=== PATIENT | female | born 1945 | race American Indian/Alaskan Native ===

== ENCOUNTER 2016-09-06 21:18 | Inpatient (IN) | payer MEDICARE ==
--- NOTE | 2016-09-06 22:46 | Emergency Department Report ---
ED General Adult HPI - General Chief complaint: Altered Mental Status Stated complaint: MH EVAL Time Seen by Provider: 09/06/16 22:28 Source: family, EMS (ems notes not available at time of chart dictation), RN notes reviewed Mode of arrival: Stretcher Limitations: Altered Mental Status, Physical Limitation - History of Present Illness Initial comments: This is a 71-year-old female. She is previously unknown to me. Her primary care doctor is Dr. Simon. Cardiology with [facility]. Past medical history includes hypertension, high cholesterol, diabetes, kidney disease (family thinks the patient has stage III CK did, but they're not certain ), stroke, possible early dementia. Patient is brought to the hospital by EMS and family for altered mental status. Patient last seen normal at 4:30 previous afternoon. Symptoms are constant. They have no exacerbating or relieving factors. No fevers or chills. As per family, patient speaking nonsensically, having word finding difficulty. The patient is altered, somewhat delirious, is unable to offer additional collaborating history. -: unknown Severity scale (0 -10): 0 Consistency: constant Improves with: none Worsens with: none Associated Symptoms: confusion - Related Data Home Medications Medication Instructions Recorded Confirmed Last Taken Clopidogrel [Plavix] 75 mg PO QDAY 09/07/16 09/07/16 09/06/16 Hydralazine HCl [Apresoline TAB] 75 mg PO TID 09/07/16 09/07/16 09/06/16 Losartan [Cozaar] 100 mg PO QDAY 09/07/16 09/07/16 09/06/16 Metoprolol [Lopressor TAB] 100 mg PO DAILY 09/07/16 09/07/16 09/06/16 NIFEdipine [Nifedipine ER] 90 mg PO DAILY 09/07/16 09/07/16 09/06/16 Potassium Bicarbonate/Cit AC 20 meq PO DAILY 09/07/16 09/07/16 09/06/16 [Potassium 25 Meq Tablet Eff] Simvastatin [Zocor TAB] 40 mg PO QHS 09/07/16 09/07/16 09/05/16 cloNIDine [Catapres] 0.1 mg PO DAILY 09/07/16 09/07/16 09/06/16 levETIRAcetam [Keppra TAB] 750 mg PO BID 09/07/16 09/07/16 09/06/16 Allergies Allergy/AdvReac Type Severity Reaction Status Date / Time ascorbic acid Allergy Anaphylaxis Verified 09/06/16 22:09 [From Vital-D Rx] aspirin Allergy Anaphylaxis Verified 09/06/16 22:09 cholecalciferol (vitamin D3) Allergy Anaphylaxis Verified 09/06/16 22:09 [From Vital-D Rx] folic acid [From Vital-D Rx] Allergy Anaphylaxis Verified 09/06/16 22:09 vitamin B complex no.4 Allergy Anaphylaxis Verified 09/06/16 22:09 [From Vital-D Rx] zinc oxide [From Vital-D Rx] Allergy Anaphylaxis Verified 09/06/16 22:09 ED Review of Systems ROS: Stated complaint: MH EVAL Other details as noted in HPI Constitutional: malaise. denies: fever Eyes: denies: eye discharge ENT: denies: congestion Respiratory: denies: cough Cardiovascular: denies: chest pain Gastrointestinal: denies: vomiting Genitourinary: as per HPI Musculoskeletal: as per HPI Skin: as per HPI Neurological: as per HPI, weakness, other (ams) Psychiatric: as per HPI ED Past Medical Hx - Past Medical History Previous Medical History?: Yes Hx Hypertension: Yes Hx CVA: Yes Hx Diabetes: Yes - Surgical History Past Surgical History?: No - Social History Smoking Status: Never Smoker Substance Use Type: None - Medications Home Medications: Home Medications Medication Instructions Recorded Confirmed Last Taken Type Clopidogrel [Plavix] 75 mg PO QDAY 09/07/16 09/07/16 09/06/16 History Hydralazine HCl [Apresoline TAB] 75 mg PO TID 09/07/16 09/07/16 09/06/16 History Losartan [Cozaar] 100 mg PO QDAY 09/07/16 09/07/16 09/06/16 History Metoprolol [Lopressor TAB] 100 mg PO DAILY 09/07/16 09/07/16 09/06/16 History NIFEdipine [Nifedipine ER] 90 mg PO DAILY 09/07/16 09/07/16 09/06/16 History Potassium Bicarbonate/Cit AC 20 meq PO DAILY 09/07/16 09/07/16 09/06/16 History [Potassium 25 Meq Tablet Eff] Simvastatin [Zocor TAB] 40 mg PO QHS 09/07/16 09/07/16 09/05/16 History cloNIDine [Catapres] 0.1 mg PO DAILY 09/07/16 09/07/16 09/06/16 History levETIRAcetam [Keppra TAB] 750 mg PO BID 09/07/16 09/07/16 09/06/16 History ED Physical Exam - General Limitations: Altered Mental Status, Physical Limitation General appearance: in no apparent distress - Head Head exam: Present: atraumatic, normocephalic - Eye Eye exam: Present: normal appearance, EOMI. Absent: nystagmus - ENT ENT exam: Present: mucous membranes dry - Neck Neck exam: Present: normal inspection, full ROM. Absent: tenderness, meningismus - Respiratory Respiratory exam: Present: normal lung sounds bilaterally. Absent: respiratory distress, wheezes, rales, rhonchi, stridor, chest wall tenderness, accessory muscle use, decreased breath sounds, prolonged expiratory - Cardiovascular Cardiovascular Exam: Present: regular rate, normal rhythm, normal heart sounds. Absent: bradycardia, tachycardia, irregular rhythm, systolic murmur, diastolic murmur, rubs, gallop - GI/Abdominal GI/Abdominal exam: Present: soft, tenderness, normal bowel sounds, other (there is mild lower abdominal tenderness, there is no rebound, guarding or peritoneal signs.). Absent: distended, guarding, rebound, rigid, pulsatile mass - Extremities Exam Extremities exam: Present: normal inspection, full ROM, normal capillary refill. Absent: pedal edema, joint swelling, calf tenderness - Back Exam Back exam: Present: normal inspection, full ROM. Absent: tenderness, CVA tenderness (R), CVA tenderness (L), muscle spasm, paraspinal tenderness, vertebral tenderness - Neurological Exam Neurological exam: Present: alert, altered (patient altered. Speaks nonsensically. Follows some commands. No obvious dysarthria.), other ( Extraocular movements intact. Tongue midline. No facial droop. Facial sensation intact to light touch in the V1, V2, V3 distribution bilaterally. 5 and 5 strength in 4 extremities.. Sensation is intact to light touch in 4 extremities.). Absent: motor sensory deficit - Psychiatric Psychiatric exam: Present: anxious - Skin Skin exam: Present: warm, dry, intact, normal color. Absent: rash ED Course Vital Signs 09/06/16 09/06/16 09/06/16 21:59 22:00 22:11 Temperature 98.1 F Pulse Rate 67 69 70 Respiratory 16 16 16 Rate Blood Pressure Blood Pressure 160/63 [Left] O2 Sat by Pulse 99 99 99 Oximetry 09/06/16 09/07/16 09/07/16 23:00 00:08 01:00 Temperature Pulse Rate 70 Respiratory 12 14 Rate Blood Pressure 162/60 163/69 152/62 Blood Pressure [Left] O2 Sat by Pulse 100 99 100 Oximetry 09/07/16 09/07/16 09/07/16 01:18 01:40 02:00 Temperature 98.2 F Pulse Rate Respiratory 20 19 Rate Blood Pressure 179/60 Blood Pressure [Left] O2 Sat by Pulse 100 99 Oximetry 09/07/16 09/07/16 09/07/16 03:00 04:00 05:00 Temperature Pulse Rate 74 75 72 Respiratory 19 15 18 Rate Blood Pressure 174/74 163/75 164/70 Blood Pressure [Left] O2 Sat by Pulse 99 99 99 Oximetry 09/07/16 09/07/16 09/07/16 06:00 07:00 07:48 Temperature Pulse Rate 78 74 Respiratory 18 19 20 Rate Blood Pressure 155/69 164/63 Blood Pressure 168/64 [Left] O2 Sat by Pulse 98 100 98 Oximetry 09/07/16 09/07/16 09/07/16 08:00 08:15 09:00 Temperature Pulse Rate 76 76 Respiratory 21 20 17 Rate Blood Pressure 140/58 162/72 Blood Pressure [Left] O2 Sat by Pulse 99 98 99 Oximetry 09/07/16 09/07/16 09/07/16 09:57 10:00 13:38 Temperature Pulse Rate 78 Respiratory 19 Rate Blood Pressure 166/65 152/65 166/65 Blood Pressure [Left] O2 Sat by Pulse 100 100 Oximetry 09/07/16 09/07/16 14:00 16:40 Temperature Pulse Rate 74 89 Respiratory 17 17 Rate Blood Pressure 160/71 Blood Pressure 153/76 [Left] O2 Sat by Pulse 99 97 Oximetry - Reevaluation(s) Reevaluation #1: 09/07/16 00:22 Differential diagnosis: Uremic encephalopathy, toxic encephalopathy, metabolic encephalopathy, pneumonia, urinary tract infection, intra-abdominal infection, subacute stroke Assessment and plan: 71-year-old female with altered mental status, reported history of board finding difficulty, presented to the ER more than 4.5 hours after last being seen normal, therefore she is not a TPA candidate. She follow some commands, moves 4 extremities spontaneously and to command, I see no obvious lateralizing deficits on my examination. Laboratory studies indicate known chronic renal insufficiency. Urinalysis, rectal temperature pending. Serum toxicology screen negative. Patient to be admitted for further evaluation of altered mental status once initial data points have returned. Reevaluation #2: 09/07/16 05:22 CT scan of the brain is negative for acute findings, CT scan of the abdomen and pelvis is negative, the hospital physician, Dr. Marie accepts patient to her service for evaluation of altered mental status, possible subacute stroke. ED Medical Decision Making - Lab Data Result diagrams: 09/06/16 22:33 09/07/16 09:08 Vital Signs 09/06/16 22:11 Temperature 98.1 F Pulse Rate 70 Respiratory 16 Rate Blood Pressure 160/63 [Left] O2 Sat by Pulse 99 Oximetry Lab Results 09/06/16 09/06/16 09/06/16 Range/Units 22:33 22:33 22:33 WBC 6.7 (4.5-11.0) K/mm3 RBC 4.17 (3.65-5.03) M/mm3 Hgb 11.0 (10.1-14.3) gm/dl Hct 35.6 (30.3-42.9) % MCV 86 (79-97) fl MCH 26 L (28-32) pg MCHC 31 (30-34) % RDW 14.8 (13.2-15.2) % Plt Count 268 (140-440) K/mm3 Lymph % (Auto) 27.3 (13.4-35.0) % Thomas % (Auto) 7.0 (0.0-7.3) % Eos % (Auto) 2.0 (0.0-4.3) % Baso % (Auto) 0.7 (0.0-1.8) % Lymph # 1.8 (1.2-5.4) K/mm3 Thomas # 0.5 (0.0-0.8) K/mm3 Eos # 0.1 (0.0-0.4) K/mm3 Baso # 0.1 (0.0-0.1) K/mm3 Seg Neutrophils % 63.0 (40.0-70.0) % Seg Neutrophils # 4.2 (1.8-7.7) K/mm3 VBG pH (7.320-7.420) Sodium 143 (137-145) mmol/L Potassium 4.0 (3.6-5.0) mmol/L Chloride 104.8 (98-107) mmol/L Carbon Dioxide 22 (22-30) mmol/L Anion Gap 20 mmol/L BUN 23 H (7-17) mg/dL Creatinine 2.1 H (0.7-1.2) mg/dL Estimated GFR 28 ml/min BUN/Creatinine Ratio 10.95 % Glucose 129 H (65-100) mg/dL Lactic Acid 1.8 (0.7-2.0) mmol/L Calcium 10.1 (8.4-10.2) mg/dL Magnesium 1.6 L (1.7-2.3) mg/dL Total Bilirubin 0.2 (0.1-1.2) mg/dL AST 13 (5-40) units/L ALT 5 L (7-56) units/L Alkaline Phosphatase 72 (35-129) units/L Total Protein 6.7 (6.3-8.2) g/dL Albumin 3.8 L (3.9-5) g/dL Albumin/Globulin Ratio 1.3 % TSH (0.270-4.200) mlU/mL Salicylates (2.8-20.0) mg/dL Acetaminophen (10.0-30.0) ug/mL Plasma/Serum Alcohol (0-0.07) gm% 09/06/16 09/06/16 09/06/16 Range/Units 22:33 22:33 22:33 WBC (4.5-11.0) K/mm3 RBC (3.65-5.03) M/mm3 Hgb (10.1-14.3) gm/dl Hct (30.3-42.9) % MCV (79-97) fl MCH (28-32) pg MCHC (30-34) % RDW (13.2-15.2) % Plt Count (140-440) K/mm3 Lymph % (Auto) (13.4-35.0) % Thomas % (Auto) (0.0-7.3) % Eos % (Auto) (0.0-4.3) % Baso % (Auto) (0.0-1.8) % Lymph # (1.2-5.4) K/mm3 Thomas # (0.0-0.8) K/mm3 Eos # (0.0-0.4) K/mm3 Baso # (0.0-0.1) K/mm3 Seg Neutrophils % (40.0-70.0) % Seg Neutrophils # (1.8-7.7) K/mm3 VBG pH (7.320-7.420) Sodium (137-145) mmol/L Potassium (3.6-5.0) mmol/L Chloride (98-107) mmol/L Carbon Dioxide (22-30) mmol/L Anion Gap mmol/L BUN (7-17) mg/dL Creatinine (0.7-1.2) mg/dL Estimated GFR ml/min BUN/Creatinine Ratio % Glucose (65-100) mg/dL Lactic Acid (0.7-2.0) mmol/L Calcium (8.4-10.2) mg/dL Magnesium (1.7-2.3) mg/dL Total Bilirubin (0.1-1.2) mg/dL AST (5-40) units/L ALT (7-56) units/L Alkaline Phosphatase (35-129) units/L Total Protein (6.3-8.2) g/dL Albumin (3.9-5) g/dL Albumin/Globulin Ratio % TSH 1.270 (0.270-4.200) mlU/mL Salicylates < 0.3 L (2.8-20.0) mg/dL Acetaminophen < 15.0 (10.0-30.0) ug/mL Plasma/Serum Alcohol (0-0.07) gm% 09/06/16 09/06/16 Range/Units 22:33 22:56 WBC (4.5-11.0) K/mm3 RBC (3.65-5.03) M/mm3 Hgb (10.1-14.3) gm/dl Hct (30.3-42.9) % MCV (79-97) fl MCH (28-32) pg MCHC (30-34) % RDW (13.2-15.2) % Plt Count (140-440) K/mm3 Lymph % (Auto) (13.4-35.0) % Thomas % (Auto) (0.0-7.3) % Eos % (Auto) (0.0-4.3) % Baso % (Auto) (0.0-1.8) % Lymph # (1.2-5.4) K/mm3 Thomas # (0.0-0.8) K/mm3 Eos # (0.0-0.4) K/mm3 Baso # (0.0-0.1) K/mm3 Seg Neutrophils % (40.0-70.0) % Seg Neutrophils # (1.8-7.7) K/mm3 VBG pH 7.320 (7.320-7.420) Sodium (137-145) mmol/L Potassium (3.6-5.0) mmol/L Chloride (98-107) mmol/L Carbon Dioxide (22-30) mmol/L Anion Gap mmol/L BUN (7-17) mg/dL Creatinine (0.7-1.2) mg/dL Estimated GFR ml/min BUN/Creatinine Ratio % Glucose (65-100) mg/dL Lactic Acid (0.7-2.0) mmol/L Calcium (8.4-10.2) mg/dL Magnesium (1.7-2.3) mg/dL Total Bilirubin (0.1-1.2) mg/dL AST (5-40) units/L ALT (7-56) units/L Alkaline Phosphatase (35-129) units/L Total Protein (6.3-8.2) g/dL Albumin (3.9-5) g/dL Albumin/Globulin Ratio % TSH (0.270-4.200) mlU/mL Salicylates (2.8-20.0) mg/dL Acetaminophen (10.0-30.0) ug/mL Plasma/Serum Alcohol < 0.01 (0-0.07) gm% - EKG Data When compared to previous EKG there are: previous EKG unavailable 09/07/16 00:24 EKG has no prior for comparison. Normal sinus, 69 beats per minute, left axis deviation, nonspecific T-wave abnormality, not morphologically consistent with STEMI, normal intervals, no prior for comparison. - Radiology Data Radiology results: report reviewed, image reviewed interpreted by me: X-ray of the chest is negative for acute disease Noncontrast CT scan of the brain is negative, noncontrast CT scan of abdomen and pelvis is negative for acute findings. Critical care attestation.: If time is entered above; I have spent that time in minutes in the direct care of this critically ill patient, excluding procedure time. ED Disposition Clinical Impression: Altered mental status, Renal insufficiency Disposition: OP ADMITTED IP TO THIS HOSP Is pt being admited?: Yes Does the pt Need Aspirin: Yes Condition: Good
[2016-09-06 23:06] LABS: Basophils % (Auto) 0.7 % (0.0-1.8); Hematocrit 35.6 % (30.3-42.9); Mean Corpuscular HGB Conc 31 % (30-34); Mean Corpuscular Hemoglobin 26 pg (28-32); Mean Corpuscular Volume 86 fl (79-97); Platelet Count 268 K/mm3 (140-440); Red Blood Count 4.17 M/mm3 (3.65-5.03); Red Cell Distribution Width 14.8 % (13.2-15.2); White Blood Count 6.7 K/mm3 (4.5-11.0)
[2016-09-06 23:45] LABS: Albumin 3.8 g/dL (3.9-5); Albumin/Globulin Ratio 1.3 %; BUN/Creatinine Ratio 10.95; Bilirubin,Total 0.2 mg/dL (0.1-1.2); Calcium 10.1 mg/dL (8.4-10.2); Chloride 104.8 mmol/L (98-107); Magnesium 1.6 mg/dL (1.7-2.3); Total Protein 6.7 g/dL (6.3-8.2)
[2016-09-07] MEDS ORDERED: MAG-OX PO ONE (00:24)
[2016-09-07 00:43] LABS: Urine Drugs of Abuse Note Disclamer
[2016-09-07 00:59] LABS: Bilirubin,Urine NEG (Negative); Blood,Urine NEG (Negative); Ketones,Urine NEG (Negative); Leukocyte Esterase,Urine TR (Negative); Mucus,Urine FEW /HPF; Nitrite,Urine NEG (Negative); Urobilinogen,Urine < 2.0 mg/dL (<2.0)
--- NOTE | 2016-09-07 01:16 | Cat Scan Report ---
FINAL REPORT PROCEDURE: CT HEAD/BRAIN WO CON TECHNIQUE: Computerized tomography of the head was performed without contrast material. HISTORY: ams COMPARISON: No prior studies are available for comparison. FINDINGS: Skull and scalp: Normal. Paranasal sinuses: Normal. Ventricles and subarachnoid spaces: There is central and cortical atrophy appropriate for the patient's age.. Cerebrum: No evidence of hemorrhage, acute infarction or mass. There is an old infarct defect in the left internal capsule anteriorly. Cerebellum and brainstem: No evidence of hemorrhage, acute infarction or mass. Vasculature: There is calcified intracranial atherosclerosis.. Comments: None. IMPRESSION: There are chronic changes as described. There is no acute abnormality.
--- NOTE | 2016-09-07 01:30 | Cat Scan Report ---
FINAL REPORT PROCEDURE: CT ABDOMEN PELVIS WO CON TECHNIQUE: Computerized axial tomography of the abdomen and pelvis was performed without intravenous contrast. This study is performed without intravascular contrast material and its sensitivity for abdominal and pelvic pathology, including neoplasms, inflammation, abscess, free fluid, thrombosis, arterial dissection and infarction, is reduced compared with a contrast enhanced study. HISTORY: abd pain COMPARISON: No prior studies are available for comparison. FINDINGS: Visualized lower thorax: Heart size is normal. There is a small pericardial effusion.. Liver: Normal size and attenuation. Spleen: Normal size and attenuation. Gallbladder and biliary system: There has been a cholecystectomy.. The common bile duct is dilated. No choledocholithiasis is identified. Pancreas: Normal. Adrenals: There is thickening of the left adrenal gland suggesting hyperplasia versus adenoma.. Kidneys: There are bilateral kidney stones. There are no ureteral stones. There is no hydronephrosis.. GI tract: There is a large amount of stool in the colon indicating constipation. There is no fecal impaction or obstruction. There are diverticula of the sigmoid and left colon. There is no diverticulitis or colitis. The stomach, small bowel the are unremarkable. The appendix is not seen.. Lymph nodes and mesentery: Normal. Vasculature: Normal. Bladder: Normal. Reproductive organs: There has been a hysterectomy.. Peritoneum: There is no ascites, free air, abscess or adenopathy.. Musculoskeletal structures: No significant abnormality. Other: None. IMPRESSION: There is a small pericardial effusion.. There has been a cholecystectomy.. The common bile duct is dilated. No choledocholithiasis is identified. There is thickening of the left adrenal gland suggesting hyperplasia versus adenoma.. There are bilateral kidney stones. There are no ureteral stones. There is no hydronephrosis.. There is a large amount of stool in the colon indicating constipation. There is no fecal impaction or obstruction. There are diverticula of the sigmoid and left colon. There is no diverticulitis or colitis. The appendix is not seen.. There has been a hysterectomy.. There is no ascites, free air, abscess or adenopathy.. .
[2016-09-07] MEDS ORDERED: MILK OF MAGNESIA PO PRN (03:08)
[2016-09-07] MEDS ORDERED: ZOFRAN IV PRN (03:08)
[2016-09-07] MEDS ORDERED: DULCOLAX PR PRN (03:08)
[2016-09-07] MEDS ORDERED: SODIUM CHLORIDE FLUSH SYRINGE 10 ML IV PRN (03:08)
[2016-09-07] MEDS ORDERED: TYLENOL PO PRN (03:08)
--- NOTE | 2016-09-07 03:13 | History and Physical Report ---
History of Present Illness Date of examination: 09/07/16 History of present illness: 71-year-old woman with a history of hypertension, diabetes, hyperlipidemia, previous CVA, chronic kidney disease, seizure, dementia was brought to the emergency room because he is not a to be confused and had gibberish speech, not making any sense. Review of system is unobtainable. History per daughter at bedside PAST SURGICAL HISTORY: Hysterectomy, cholecystectomy, surgery for blockage SOCIAL HISTORY: Denies alcohol, tobacco, drugs FAMILY HISTORY: Hypertension Medications and Allergies Allergies Allergy/AdvReac Type Severity Reaction Status Date / Time ascorbic acid Allergy Anaphylaxis Verified 09/06/16 22:09 [From Vital-D Rx] aspirin Allergy Anaphylaxis Verified 09/06/16 22:09 cholecalciferol (vitamin D3) Allergy Anaphylaxis Verified 09/06/16 22:09 [From Vital-D Rx] folic acid [From Vital-D Rx] Allergy Anaphylaxis Verified 09/06/16 22:09 vitamin B complex no.4 Allergy Anaphylaxis Verified 09/06/16 22:09 [From Vital-D Rx] zinc oxide [From Vital-D Rx] Allergy Anaphylaxis Verified 09/06/16 22:09 Home Medications Medication Instructions Recorded Confirmed Last Taken Type Clopidogrel [Plavix] 75 mg PO QDAY 09/07/16 09/07/16 09/06/16 History Hydralazine HCl [Apresoline TAB] 75 mg PO TID 09/07/16 09/07/16 09/06/16 History Losartan [Cozaar] 100 mg PO QDAY 09/07/16 09/07/16 09/06/16 History Metoprolol [Lopressor] 100 mg PO DAILY 09/07/16 09/07/16 09/06/16 History NIFEdipine [Nifedipine ER] 90 mg PO DAILY 09/07/16 09/07/16 09/06/16 History Potassium Bicarbonate/Cit AC 20 meq PO DAILY 09/07/16 09/07/16 09/06/16 History [Potassium 25 Meq Tablet Eff] Simvastatin [Zocor TAB] 40 mg PO QHS 09/07/16 09/07/16 09/05/16 History cloNIDine [Catapres] 0.1 mg PO DAILY 09/07/16 09/07/16 09/06/16 History levETIRAcetam [Keppra TAB] 750 mg PO BID 03/09/07/16 09/06/16 History Exam - Physical Exam Narrative exam: Gen. appearance: Patient lying in bed, no apparent distress HEENT: Normocephalic, atraumatic, pupils equally round and reactive to light, extraocular movement intact, and no sclericterus,. No JVD or thyromegaly or nodule,neck supple, no carotid bruit ,mucous membranes moist, no exudate or erythema Heart: S1, S2, regular rate and rhythm Lungs: Clear to auscultation bilaterally, breathing comfortable Abdomen: Positive bowel sounds, nontender, nondistended, no organomegaly Extremity: No edema, cyanosis, clubbing Skin: No rash, nodules, warm, dry Neuro: Oriented 3, cranial nerves II-12 intact, speech is fluent, motor and sensory intact - Constitutional Vitals: Temp Pulse Resp BP Pulse Ox 98.2 F 70 16 160/63 99 09/07/16 01:18 09/06/16 22:11 09/06/16 22:11 09/06/16 22:11 09/06/16 22:11 Results - Labs CBC & Chem 7: 09/06/16 22:33 09/06/16 22:33 Labs: Abnormal lab results 09/06/16 09/06/16 09/06/16 Range/Units 22:33 22:33 22:33 MCH 26 L (28-32) pg BUN 23 H (7-17) mg/dL Creatinine 2.1 H (0.7-1.2) mg/dL Glucose 129 H (65-100) mg/dL Magnesium 1.6 L (1.7-2.3) mg/dL ALT 5 L (7-56) units/L Albumin 3.8 L (3.9-5) g/dL Salicylates < 0.3 L (2.8-20.0) mg/dL - Imaging and Cardiology EKG: image reviewed Chest x-ray: image reviewed CT scan - abdomen: report reviewed CT Scan - head: report reviewed Assessment and Plan Possible CVA Hypertension Diabetes type 2 Hyperlipidemia Chronic kidney disease History of CVA Seizure Dementia Admit to medicine Do MRI of the head, carotid Doppler, echo Do neurochecks, swallow screen Consult neurology, physical and occupational therapy Check fingersticks and initiate insulin sliding scale Start Plavix, aspirin, appropriate outpatient medications and DVT prophylaxis Start IV hydralazine as needed for blood pressure control
[2016-09-07] MEDS ORDERED: APRESOLINE IV PRN (03:23)
[2016-09-07] MEDS ORDERED: D50W (25GM) IV PRN (03:33)
[2016-09-07] MEDS ORDERED: PLAVIX PO STA (05:23)
[2016-09-07] MEDS: NOVOLOG SUB-Q SCH ×3 (08:33→16:35)
--- NOTE | 2016-09-07 09:30 | Admit Criteria Form ---
Admission Criteria Documentation: MENTAL STATUS CHANGE Clinical Indications for Inpatient Care (Place 'X' for any and all applicable criteria): Ongoing inpatient care may be needed for ANY ONE of the following(1)(2)(3)(5)(6) : [X ]I. Suspected serious etiology (eg, medical disorder, WORK STATION SUPPORT SPECIALIST event) of mental status change [ ]II. Danger to self or others not manageable at lower level of care [ ]III. Grave disability (eg, inability to perform self care necessary at lower level of care) [ ]IV. Agitation or inappropriate behavior interfering with care for primary condition (eg, attempting to discontinue lines or drains prematurely, unable to cooperate with respiratory care) [ ]V. Delirium [A] [D][E] as described by ANY ONE of the following(26): [ ]a) Delirium due to alcohol or sedative [F] withdrawal [ ]b) Delirium of uncertain etiology that has not responded to appropriate empiric treatment [ ]c) Delirium that prevents performance of a life-sustaining function (eg, feeding or hydrating oneself) [ ]. General contraindications and/or Inappropriate clinical situations for Observational Care in patients with Mental Status Change, when ANY ONE of the following is required: [ ]a) Prediction of prolongation of LOS based on ANY ONE of the following may be considered as a contraindication for observational care 2, 3, 4, 5, 6, 7, 8, 9, 10, 11 [ ]i) Age > 65 yrs. [ ]ii) Patient arriving by ambulance [ ]iii) Patient with high acuity [ ]iv) Patient requiring vital sign monitoring [ ]v) Patient on IV medication [ ]b) Systolic blood pressures 180mmHg 3,12 [ ]c) Patient with altered mental status including delirium and other alteration of consciousness, (3) [ ]d) Patient whose discharge disposition will be to a longterm home or rehabilitation home should not be managed in Emergency Department Observation Unit. CMS rule requires 3 days hospital stay before such placement.3,13 [ ]e) Patient with failure to thrive due to broad array of etiologies 3,16,17 [ ]f) Inability to ambulate 3,14 Extended stay beyond goal length of stay for the primary condition may be needed until ALL of the following are present(3)(5): [ ]a) Underlying medical etiology of mental status change is absent, or has been established and adequately treated [ ]b) Danger to self or others is absent or manageable at lower level of care. [ ]c) Behavior crisis management, including physical or chemical restraints, is not required or available at lower level of car [ ]d) Substance or alcohol withdrawal is absent or manageable at lower level of care. [ ]e) Behavioral symptoms (eg, agitation, somnolence, inappropriate behavior) are absent, or are manageable at lower level of care. The original [facility] content created by [facility] has been revised. The portions of the content which have been revised are identified through the use of italic text or in bold, and [facility] has neither reviewed nor approved the modified material. All other unmodified content is copyright [facility]. Please see references footnoted in the original [facility] edition 2016 Admission Criteria Met: Yes
--- NOTE | 2016-09-07 09:31 | XRay Report ---
Single view chest: History: AMS question PNA. Findings: Borderline cardiomegaly. Trachea is midline. No consolidation, pneumothorax or pleural effusion. Impression: No acute cardiopulmonary findings
[2016-09-07 09:50] LABS: BUN/Creatinine Ratio 10.52; Calcium 9.6 mg/dL (8.4-10.2); Chloride 105.8 mmol/L (98-107); Potassium 3.3 mmol/L (3.6-5.0)
[2016-09-07] MEDS ORDERED: LOVENOX SUB-Q SCH (10:00)
[2016-09-07] MEDS ORDERED: PLAVIX PO SCH (10:00)
[2016-09-07] MEDS ORDERED: NON-FORMULARY (Levetiracetam [Keppra Tab] 750 MG) PO SCH (10:00)
[2016-09-07] MEDS ORDERED: KEPPRA PO SCH (10:00)
--- NOTE | 2016-09-07 12:37 | Consultation ---
History of Present Illness - Reason for Consult Consult date: 09/07/16 stroke - History of Present Illness patient seen and has expressive aphasia there is hx of dementia therefore I have ordered aricept as she has taken this previously will follow thanks Medications and Allergies Allergies Allergy/AdvReac Type Severity Reaction Status Date / Time ascorbic acid Allergy Anaphylaxis Verified 09/06/16 22:09 [From [facility]] aspirin Allergy Anaphylaxis Verified 09/06/16 22:09 cholecalciferol (vitamin D3) Allergy Anaphylaxis Verified 09/06/16 22:09 [From [facility]] folic acid [From [facility]] Allergy Anaphylaxis Verified 09/06/16 22:09 vitamin B complex no.4 Allergy Anaphylaxis Verified 09/06/16 22:09 [From [facility]] zinc oxide [From [facility]] Allergy Anaphylaxis Verified 09/06/16 22:09 Home Medications Medication Instructions Recorded Confirmed Last Taken Type Clopidogrel [Plavix] 75 mg PO QDAY 09/07/16 09/07/16 09/06/16 History Hydralazine HCl [Apresoline TAB] 75 mg PO TID 09/07/16 09/07/16 09/06/16 History Losartan [Cozaar] 100 mg PO QDAY 09/07/16 09/07/16 09/06/16 History Metoprolol [Lopressor] 100 mg PO DAILY 09/07/16 09/07/16 09/06/16 History NIFEdipine [Nifedipine ER] 90 mg PO DAILY 09/07/16 09/07/16 09/06/16 History Potassium Bicarbonate/Cit AC 20 meq PO DAILY 09/07/16 09/07/16 09/06/16 History [Potassium 25 Meq Tablet Eff] Simvastatin [Zocor TAB] 40 mg PO QHS 09/07/16 09/07/16 09/05/16 History cloNIDine [Catapres] 0.1 mg PO DAILY 09/07/16 09/07/16 09/06/16 History levETIRAcetam [Keppra TAB] 750 mg PO BID 09/07/16 09/07/16 09/06/16 History Active Meds: Active Medications Acetaminophen (Tylenol) 650 mg PO Q4H PRN PRN Reason: Pain, Mild (1-3) Bisacodyl (Dulcolax) 10 mg ID QDAY PRN PRN Reason: Constipation Clopidogrel Bisulfate (Plavix) 75 mg PO QDAY [facility] Last Admin: 09/07/16 09:45 Dose: 75 mg Dextrose (D50w (25gm)) 50 ml IV PRN PRN PRN Reason: Hypoglycemia Enoxaparin Sodium (Lovenox) 30 mg SUB-Q QDAY [facility] Last Admin: 09/07/16 09:44 Dose: 30 mg Hydralazine HCl (Apresoline) 5 mg IV Q6HR PRN PRN Reason: Hypertension Last Admin: 09/07/16 09:57 Dose: 5 mg Insulin Aspart (Novolog) 0 units SUB-Q ACHS [facility] PRN Reason: Protocol Last Admin: 09/07/16 08:33 Dose: Not Given Levetiracetam (Keppra) 750 mg PO BID [facility] Last Admin: 09/07/16 09:44 Dose: 750 mg Magnesium Hydroxide (Milk Of Magnesia) 30 ml PO Q4H PRN PRN Reason: Constipation Ondansetron HCl (Zofran) 4 mg IV Q8H PRN PRN Reason: N/V unrelieved by Reglan Simvastatin (Zocor) 40 mg PO QHS [facility] Sodium Chloride (Sodium Chloride Flush Syringe 10 Ml) 10 ml IV PRN PRN PRN Reason: LINE FLUSH Exam - Constitutional Vitals: Temp Pulse Resp BP Pulse Ox 98.2 F 76 17 166/65 99 09/07/16 01:18 09/07/16 09:00 09/07/16 09:00 09/07/16 09:57 09/07/16 09:00 Results - Labs CBC & Chem 7: 09/06/16 22:33 09/07/16 09:08 Labs: Abnormal lab results 09/07/16 Range/Units 09:08 Potassium 3.3 L (3.6-5.0) mmol/L BUN 20 H (7-17) mg/dL Creatinine 1.9 H (0.7-1.2) mg/dL Glucose 121 H (65-100) mg/dL
--- NOTE | 2016-09-07 13:41 | Magnetic Resonance Report ---
MR brain: History: Stroke. Findings: No evidence of restricted diffusion. Ventricles midline location. Chronic ischemia left anterior basal ganglia. No evidence of acute ischemia, hemorrhage or mass. Periventricular areas of increased signal intensity bilaterally. Normal brainstem and cerebellum. Normal sinuses and mastoid air cells. Impression: No acute intracranial abnormality. Chronic ischemic changes in left anterior basal ganglia. Small vessel ischemic changes bilaterally.
[2016-09-07] MEDS ORDERED: K-DUR PO STA (15:48)
--- NOTE | 2016-09-07 15:48 | Discharge Summary ---
Providers - Providers Date of Admission: 09/07/16 03:08 Date of discharge: 09/07/16 Attending physician: MIK RDZ Primary care physician: ZOIE ESPINOZA MD Hospitalization Condition: Good Disposition: DISCHARGED TO HOME OR SELFCARE - Discharge Diagnoses (1) TIA (transient ischemic attack) Status: Acute Qualifiers: Transient cerebral ischemia type: T (2) Dementia Status: Acute Qualifiers: Dementia type: D Alzheimer's disease onset: A Dementia behavioral disturbance: D Exam - Constitutional Vitals: Temp Pulse Resp BP Pulse Ox 98.2 F 74 17 160/71 99 09/07/16 01:18 09/07/16 14:00 09/07/16 14:00 09/07/16 14:00 09/07/16 14:00 Plan Activity: advance as tolerated Diet: low fat, low cholesterol, low salt Additional Instructions: 1.Follow up with PCP in 1 week. 2.Follow up with [facility] in 1-2 weeks. Follow up with: PRIMARY CAREMD [Primary Care Provider] - 3-5 Days
[2016-09-07 16:42] VITALS: BP 153/76
[2016-09-07] MEDS ORDERED: ZOCOR PO SCH ×3 (22:00)
[2016-09-07] MEDS ORDERED: ARICEPT PO SCH (22:00)
== END 2016-09-07 16:43 | disposition home or self-care (01) | DRG 69 ==
LOC: ED 21:18 → 4A 09-07 03:08
PROVIDERS: ADMIT Internal Medicine; ATTEND Internal Medicine
DX: G45.9 Transient cerebral ischemic attack, unspecified (principal); R47.01 Aphasia; I12.9 Hypertensive chronic kidney disease with stage 1 through stage 4 chronic kidney disease, or unspecified chronic kidney disease; E11.22 Type 2 diabetes mellitus with diabetic chronic kidney disease; E78.5 Hyperlipidemia, unspecified; R56.9 Unspecified convulsions; F03.90 Unspecified dementia, unspecified severity, without behavioral disturbance, psychotic disturbance, mood disturbance, and anxiety; N18.3 Chronic kidney disease, stage 3 (moderate); Z86.73 Personal history of transient ischemic attack (TIA), and cerebral infarction without residual deficits; Z79.899 Other long term (current) drug therapy; Z88.8 Allergy status to other drugs, medicaments and biological substances; Z88.6 Allergy status to analgesic agent; Z90.49 Acquired absence of other specified parts of digestive tract; Z90.710 Acquired absence of both cervix and uterus; Z82.49 Family history of ischemic heart disease and other diseases of the circulatory system
CPT/HCPCS: 36415; 70450; 70551; 71010; 74176; 80048; 80053; 80307; 80320; 81001; 82140; 82805; 82962; 83735; 84443; 85025; 93005; 93010; 93306; 93880; G0480; J0360; J1650